=== PATIENT | male | born 1975 | race Caucasian/White ===

== ENCOUNTER 2017-01-23 15:36 | Emergency (ER) | payer BC ==
[~2017-01-23] VITALS: Ht 182.9 cm; Wt 110.7 kg
--- NOTE | ~2017-01-23 | CT16 ---
[facility] A Service of [facility] & [facility] RADIOLOGY TEXT RESULTS PATIENT: ALYSSA ANDERSON JR LOCATION: SED : 77 UNIT #: [id number] AGE: [address]: Moniac Díaz MD SEX: M ORDER DR: [id number] [address] [address] [id number] MR#: [id number] Acc #: [id number] NAME: ALYSSA ANDERSON JR : 1975 SEX: M STUDY DATE/TIME: 01/23/2017 16:48 UNIT: SED ROOM: STUDY DESCRIPTION: CT Angio Chest for PE Attending Physician: Monica Díaz M.D. Ordering Physician: Monica Díaz M.D. Primary Care Physician: Rich Osorio M.D. MEDICAL IMAGING REPORT This report is preliminary unless electronic signature is present. EXAM CT angiography chest for PE, 01/23/2017 HISTORY Short of air. Heart racing x1 day. TECHNIQUE CT pulmonary angiography performed with intravenous administration 80 mL Isovue-370. Findings discussed preliminarily with Dr. Díaz immediately prior to this dictation. No comparisons. This CT exam was performed with one or more of the following radiation dose reduction techniques: automatic exposure control, adjustment of mA and/or kV according to patient size, and iterative reconstruction. FINDINGS Thyroid unremarkable. No axillary, mediastinal or hilar adenopathy. The heart is normal in overall size. No pleural effusions. Visualized portions of liver show no focal parenchymal abnormality. Prominent reflux of contrast material into the inferior vena cava and hepatic veins consistent with elevated right heart pressure. Gallbladder, spleen, pancreas, adrenal glands, kidneys notable for a faint 1.8 cm mid right renal cyst. There is no abdominal adenopathy seen. The distal esophagus, stomach, small bowel and colon are unremarkable in visualized extent. Pulmonary parenchyma shows patchy airspace disease at the right lung base. Nonspecific in appearance but given pulmonary emboli discussed below, concerning for evolving pulmonary infarct. Components of atelectasis or pneumonia not excluded. Atelectasis at the left lung base. A 4 mm indeterminate subpleural nodule posterolateral left lung base image number 129. Indeterminate 1.4 cm x 7 mm noncalcified nodule left upper lobe image number 52. Indeterminate 3-4 mm noncalcified nodule lateral segment [facility] A Service of [facility] & [facility] RADIOLOGY TEXT RESULTS PATIENT: ALYSSA ANDERSON JR LOCATION: [facility] : [birth year] UNIT #: [id number] AGE: [address]: Monica Díaz MD SEX: M ORDER DR: right middle lobe image 34. The pulmonary arteries are well opacified. Saddle embolus spanning the main pulmonary artery bifurcation. On the left thrombus extends into the proximal upper lobe segmental pulmonary arteries including the lingular pulmonary arteries. Nearly occlusive thrombus in the proximal left apical and anterior segmental pulmonary arteries and in the proximal left lingular pulmonary arteries. Nearly occlusive thrombus in the left lower lobe pulmonary artery with nonocclusive thrombus extending into the lower lobe segmental branches. On the right there is large-volume thrombus but nonocclusive extending into the upper lobe right pulmonary artery and its segmental branches, into the interlobar artery, proximal right middle lobe pulmonary artery and multiple left lower lobe segmental and subsegmental branches. There is thrombus in the pulmonary artery supplying the area of airspace disease right lung base strongly suggesting that the airspace disease is evolving infarct. Attention at followup recommended. There is evidence of right heart strain with the RV LV ratio approximately 5.7 cm/3.4 cm. The aorta is normal in caliber. No dissection. Visualized aortic branch vessels patent. The bony structures show no acute abnormality. IMPRESSION 1. Abnormal examination. Findings preliminary discussed with Dr. Díaz immediately prior to this dictation. Massive bilateral pulmonary emboli including saddle embolus spanning the pain pulmonary artery bifurcation. Near occlusive emboli in the proximal left upper and lower lobe pulmonary arteries. There is probably ivette occlusion of some left lower lobe proximal segmental arteries. Extensive nonocclusive emboli in the right upper, middle and lower lobe pulmonary arteries proximally with some right lower lobe segmental and subsegmental emboli present as well. There is evidence of right heart strain with RV LV ratio 5.7/3.4. Reflux of contrast material into the inferior vena cava and hepatic veins also indicative of elevated right heart pressure. 2. Airspace disease at the right lung base in an area supplied by pulmonary artery containing thrombus favored to be evolving pulmonary infarct. Attention at followup recommended. Less likely in differential diagnosis would be pneumonia or atelectasis. 3. Bilateral non-calcified pulmonary nodules. See sizes and locations in body of report above. Largest is in the left upper lobe image 52 measuring up to 1.4 cm in maximum diameter. Nonspecific appearance. I have no prior studies for comparison. In the absence of prior studies demonstrating prolonged stability, consider CT PET scan evaluation of this nodule when clinically appropriate for the patient. At the very least 3-month CT followup would be recommended if CT PET scan not performed. 4. The right kidney shows a 1.8 cm cyst. 5. Remainder of visualized upper abdomen unremarkable. [facility] A Service of [facility] RADIOLOGY TEXT RESULTS PATIENT: ALYSSA ANDERSON JR LOCATION: [facility] : [birth year] UNIT #: [id number] AGE: [address]: Monica Díaz MD SEX: M ORDER DR: Dictated by... Eliezer Thibodeaux M.D. THIS IS AN ELECTRONICALLY VERIFIED REPORT Eliezer Thibodeaux M.D. at 01/25/2017 7:36 AM Jessie TD: 01/24/2017 06:45 JOB #: [id number] MEDICAL IMAGING REPORT Page 1 of 1
--- NOTE | ~2017-01-23 | EKG ---
PATIENT: ALYSSA ANDERSON UNIT #: [id number] Ventricular Rate: 115 BPM Atrial Rate: 117 BPM QRS Duration: 102 ms Q-T Interval: 352 ms QTC Calculation(Bezet): 486 ms Calculated R [place]: 29 degrees Calculated T [place]: 74 degrees Diagnosis Line: Sinus tachycardia Diagnosis Line: ST and T wave abnormality, consider anterior Diagnosis Line: ischemia Diagnosis Line: Abnormal ECG Diagnosis Line: No previous ECGs available Diagnosis Line: Confirmed by BRADY CRAIG MD ([id number]) on Diagnosis Line: 01/24/2017 8:52:26 PM INTERPRETING MD: RAFA ANDRADE
[2017-01-23] MEDS ORDERED: DIOVAN (15:51)
[2017-01-23] MEDS ORDERED: ZOCOR (15:51)
[2017-01-23] MEDS ORDERED: NAPROXEN (15:51)
[2017-01-23] MEDS ORDERED: ROBAXIN (15:51)
[2017-01-23] MEDS ORDERED: ACETAMINOPHEN (15:52)
[2017-01-23] MEDS ORDERED: PRILOSEC (15:52)
[2017-01-23] MEDS ORDERED: ATENOLOL (15:52)
[2017-01-23 15:55] LABS: BASOPHIL# 0.1 X10e3 (0-0.3); BASOPHIL% 0.6 % (0-2.5); DIFF IND NO; EOSINOPHIL# 0.1 X10e3 (0-0.7); EOSINOPHIL% 1.2 % (0.0-7.0); HEMATOCRIT 46.9 % (38.0-50.0); HEMOGLOBIN 15.8 gm/dL (13.0-16.0); LYMPHOCYTE# 3.3 X10e3 (1.0-3.5); LYMPHOCYTE% 28.4 % (17.0-45.0); MEAN CELL VOLUME 94.9 FL (83-96); MEAN CORPUSCULAR HGB CONC 33.7 g/dL (30-36); MEAN PLATELET VOLUME 9.2 FL (6.5-11.5); MONOCYTE# 1.1 X10e3 (0-1.0); MONOCYTE% 9.4 % (3.0-12.0); NEUTROPHIL% 60.4 % (40-75); PLATELET COUNT 186 X10e3 (140-420); RED BLOOD COUNT 4.94 X10e (3.90-5.60); WHITE BLOOD COUNT 11.6 X10e3 (4.0-10.5)
[2017-01-23 16:09] LABS: INR 1.3; PROTHROMBIN TIME (PATIENT) 14.4 SECONDS (9.5-12.4)
[2017-01-23 16:16] LABS: PARTIAL THROMBOPLASTIN TIME 26.1 SECONDS (25.6-38.1)
[2017-01-23 16:18] LABS: BILIRUBIN, DIRECT 0.2 mg/dL (0.0-0.2); BILIRUBIN,INDIRECT 0.9 mg/dL (0.0-0.9); BILIRUBIN,TOTAL 1.1 mg/dL (0.2-2.0); BUN/CREATININE RATIO 11.87; CALCIUM SERUM 8.8 mg/dL (8.4-10.2); CREATININE SERUM 1.6 mg/dL (0.6-1.4); GLOM FILT RATE Estimated 53.1 mL/min (>60); MAGNESIUM 2.5 mg/dL (1.6-3.0); POTASSIUM 3.2 mmol/L (3.5-5.1); PROTEIN TOTAL SERUM 7.2 g/dL (6.0-8.3)
[2017-01-24 14:47] LABS: POC - CKMB <1.0 ng/mL (0.0-7.9); POC - TROPONIN <0.05 ng/mL (<=0.05)
[2017-01-24 14:51] LABS: POC - CKMB 1.3 ng/mL (0.0-7.9); POC - TROPONIN 0.16 ng/mL (<=0.05)
== END 2017-01-23 18:45 ==
LOC: SED 15:36
PROVIDERS: Student in an Organized Health Care Education/Training Program
DX: I26.99 Other pulmonary embolism without acute cor pulmonale (principal); I26.92 Saddle embolus of pulmonary artery without acute cor pulmonale; R73.9 Hyperglycemia, unspecified; R09.02 Hypoxemia; E78.5 Hyperlipidemia, unspecified; I10 Essential (primary) hypertension
CPT/HCPCS: 36415; 71275; 80048; 80076; 82553; 83735; 83880; 84484; 85025; 85610; 85730; 93005; 96374; 99291; J1644; Q9967